=== PATIENT | male | born 1945 | race Caucasian/White ===

== ENCOUNTER 2022-11-24 12:21 | Emergency (ER) | payer MEDICARE, MEDICAID ==
[~2022-11-24] VITALS: Ht 185.4 cm; Wt 88.6 kg
[~2022-11-24 12:21] MED LIST: ACET-2247 PO; ASPI-1450 PO; BISA10SU11 PR; CLOP75TA60 PO; DOCU-385 PO; GABA-1181 PO; HEPA500018 SQ; LISI-894 PO; MAGN-169 PO; PANT-31 PO; SIMV-259 PO
[2022-11-24] MEDS ORDERED: PANT40TA54 PO (12:28)
[2022-11-24] MEDS ORDERED: APIX5TAB PO (12:28)
[2022-11-24] MEDS ORDERED: SIMV10TA97 PO (12:28)
[2022-11-24] MEDS ORDERED: FAMO20 PO (12:28)
[2022-11-24] MEDS ORDERED: LISI20TA24 PO (12:28)
[2022-11-24] MEDS ORDERED: ESCI5TAB16 PO (12:28)
[2022-11-24] MEDS ORDERED: TraMADol HCL 50 MG TABLET PO ONE (12:45)
[2022-11-24 14:30] LABS: BASOPHILS % (AUTO) 0.4 % (0.0-2.0); EOSINOPHILS % (AUTO) 2.4 % (1.0-6.0); HEMATOCRIT 40.8 % (41-53); HEMOGLOBIN 13.2 g/dL (13.5-17.5); LYMPHOCYTES # (AUTO) 1.7 K/uL (1.0-4.8); LYMPHOCYTES % (AUTO) 17.4 % (22.0-44.0); MEAN CORPUSCULAR HEMOGLOBIN 29.8 pg (26.0-34.0); MEAN CORPUSCULAR HGB CONC 32.4 G/dL (31.0-37.0); MEAN CORPUSCULAR VOLUME 92 fL (80-100); MONOCYTES # (AUTO) 0.5 K/uL (0.1-1.0); MONOCYTES % (AUTO) 5.5 % (2.0-9.0); NEUTROPHILS # (AUTO) 7.3 K/uL (1.8-7.7); NEUTROPHILS % (AUTO) 74.3 % (40.0-70.0); PLATELET COUNT (AUTO) 333 K/uL (150-450); RED BLOOD CELL COUNT(AUTO) 4.44 MIL/uL (4.50-5.90); RED CELL DISTRIBUTION WIDTH 15.7 % (11.5-14.5); WHITE BLOOD COUNT (AUTO) 9.8 K/uL (4.5-11.0)
[2022-11-24 14:46] LABS: ANION GAP 15 mmol/L (8-16); CALCIUM, TOTAL 9.1 mg/dL (8.8-10.5); CARBON DIOXIDE 27 mmol/L (22-29); CHLORIDE 102 mmol/L (98-107); CREATININE 0.78 mg/dL (0.60-1.30); GLOMERULAR FILTR. RATE CALC > 60 mL/min (>60); GLUCOSE,RANDOM 111 mg/dL (70-110); POTASSIUM 4.8 mmol/L (3.5-5.1); SODIUM SERUM 144 mmol/L (136-145); UREA NITROGEN, BLOOD 21 mg/dL (7-18)
[2022-11-24 14:51] LABS: ALANINE AMINOTRANSFERASE 19 U/L (12-78); ALKALINE PHOSPHATASE 81 U/L (46-116); ASPARTATE AMINOTRANSFERASE 18 U/L (15-37); BILIRUBIN,TOTAL 0.3 mg/dL (0.1-1.0); TOTAL PROTEIN, SERUM 6.5 g/dL (6.4-8.2)
[2022-11-24 15:07] VITALS: BP 146/88; PULSE 54; RESP 18; TEMP 97.7
[2022-11-24 17:09] LABS: COVID AG,FIA SOURCE NASAL SWAB
[2022-11-24 17:33] LABS: SARS-COV2 (COVID) ANTIGEN,FIA Negative (Negative)
== END 2022-11-24 17:57 | disposition home or self-care (01) ==
LOC: EMS 12:26
DX: S80.01XA Contusion of right knee, initial encounter (principal); I48.91 Unspecified atrial fibrillation; F41.9 Anxiety disorder, unspecified; E78.00 Pure hypercholesterolemia, unspecified; I10 Essential (primary) hypertension; Z90.49 Acquired absence of other specified parts of digestive tract; Z20.822 Contact with and (suspected) exposure to COVID-19; X58.XXXA Exposure to other specified factors, initial encounter; Y93.89 Activity, other specified; Y92.89 Other specified places as the place of occurrence of the external cause; Y99.8 Other external cause status
CPT/HCPCS: 80053; 85025; 99284